=== PATIENT | male | born 1990 | race Caucasian/White ===

== ENCOUNTER 2024-04-14 09:30 | Emergency (ER) | payer SELFPAY ==
[2024-04-14] MEDS: cefTRIAXone 2 GM Vial IVPUSH ONE (10:01)
== END 2024-04-14 10:25 | disposition home or self-care (01) ==
LOC: CC.ED 09:30
DX: L08.9 Local infection of the skin and subcutaneous tissue, unspecified (principal); S61.212A Laceration without foreign body of right middle finger without damage to nail, initial encounter; X58.XXXA Exposure to other specified factors, initial encounter; Y93.89 Activity, other specified; Y99.0 Civilian activity done for income or pay
CPT/HCPCS: 96374; 99283; 99283-25; J0696

== ENCOUNTER 2024-05-05 16:50 | Emergency (ER) | payer SELFPAY ==
[2024-05-05 17:29] LABS: BASOPHILS ABSOLUTE AUTO 0.06 10^3/uL (0.00-0.50); BASOPHILS PERCENT AUTO 0.6 % (0-1); EOSINOPHILS ABSOLUTE AUTO 0.55 10^3/uL (0.00-1.50); EOSINOPHILS PERCENT AUTO 5.1 % (0-6); HEMATOCRIT 42.9 % (42.0-52.0); HEMOGLOBIN 14.1 g/dL (14.0-18.0); IMMATURE GRAN ABSOLUTE AUTO 0.01 10^3/uL (0.00-0.49); IMMATURE GRAN PERCENT AUTO 0.1 % (0.0-4.9); LYMPHOCYTES PERCENT AUTO 20.5 % (24-44); MEAN CORPUSCULAR HEMOGLOBIN 26.3 pg (27.0-32.0); MEAN CORPUSCULAR HGB CONC 32.9 g/dL (32.0-36.0); MEAN CORPUSCULAR VOLUME 79.9 fL (83.0-97.0); MONOCYTES PERCENT AUTO 9.3 % (0-10); NEUTROPHILS ABSOLUTE AUTO 6.89 x10^3/uL (1.80-8.00); NEUTROPHILS PERCENT AUTO 64.4 % (41-71); PLATELET COUNT,PLT 341 10^3/uL (150-400); RED BLOOD CELL COUNT 5.37 x10^6/uL (4.50-6.00); WHITE BLOOD CELL COUNT,WBC 10.7 10^3/uL (4.0-11.0)
[2024-05-05 17:41] LABS: ALBUMIN 3.5 g/dL (3.4-5.0); BILIRUBIN TOTAL 0.4 mg/dL (0.0-1.0); CALCIUM 8.9 mg/dL (8.4-10.1); CREATININE 1.2 mg/dL (0.7-1.3); EST CRCL DRUG DOSING (CG) 92.38 mL/min; POTASSIUM,K 4.6 mEq/L (3.5-5.0); PROTEIN TOTAL,TP 6.5 g/dL (6.4-8.2)
[2024-05-05] MEDS: Sodium Chloride 0.9% 1,000 ML IV ONE (17:49)
[2024-05-05] MEDS: Vancomycin 125 MG Cap PO STA (18:23)
== END 2024-05-05 19:04 | disposition home or self-care (01) ==
LOC: CC.ED 16:50
DX: A04.72 Enterocolitis due to Clostridium difficile, not specified as recurrent (principal)
CPT/HCPCS: 36415; 80053; 83735; 85025; 87045; 87046; 87324; 87425; 87493; 87798; 96360; 99284-25; A9270-GY; J7030